=== PATIENT | female | born 1970 | race African-American/Black ===

== ENCOUNTER 2018-12-20 11:29 | Emergency (ER) | payer OTHER ==
[2018-12-20] MEDS: IPRATROPIUM (NEB) 0.5 MG/2.5 ML AMP HHN (13:14)
[2018-12-20] MEDS: LEVALBUTEROL (NEB) 1.25 MG/0.5 ML AMP HHN (13:14)
[2018-12-20] MEDS: predniSONE 50 MG TAB PO (14:00)
== END 2018-12-20 14:15 | disposition home or self-care (01) ==
LOC: FTE 14:15
DX: J45.901 Unspecified asthma with (acute) exacerbation (principal)
CPT/HCPCS: 94664; 99283-25